=== PATIENT | male | born 1990 | race Caucasian/White ===

== ENCOUNTER 2025-05-24 12:21 | Emergency (ER) | payer OTHER, SELFPAY ==
[2025-05-24] VITALS (11 sets, daily range): BP systolic 114–138; BP diastolic 71–83; PULSE 66–73
[2025-05-24 12:59] LABS: Hematocrit 44.9 % (39.0-52.0); Hemoglobin 15.1 g/dL (13.0-18.0); Mean Corp Hgb Conc. 33.6 g/dL (33.0-37.0); Mean Corpuscular Volume 92.4 fL (80.0-94.0); Nucleated Red Blood Cells % 0 % (-); Platelet Count 311 10^3/uL (130-400); Red Cell Dist. Width 11.8 % (11.5-14.5)
[2025-05-24 13:18] LABS: ALT (SGPT) 32 U/L (0-50); AST (SGOT) 25 U/L (17-59); Albumin 5.2 g/dl (3.5-5.0); Alkaline Phosphatase 63 U/L (38-126); Blood Urea Nitrogen 13 mg/dl (9-20); Calcium 9.6 mg/dl (8.4-10.2); Carbon Dioxide 29 mmol/L (22-30); Chloride 100 mmol/L (98-107); Glucose 83 mg/dl (70-99); Potassium 4.3 mmol/L (3.5-5.1); Sodium 138 mmol/L (135-145); Total Protein 7.9 g/dl (6.3-8.2); eGFR > 60.00
[2025-05-24 13:29] LABS: Troponin I < 0.012 ng/ml
--- NOTE | 2025-05-24 16:22 | ED.GENMED ---
History of Present Illness
General
Chief Complaint: Dizziness
Source: patient
Exam Limitations: none
Time Seen by Provider: 05/24/25 15:59
History of Present Illness
History of Present Illness:
34-year-old male otherwise healthy presents with intermittent neck discomfort and headache with blurry vision and lightheadedness with dizziness. This has been going on for the past several weeks. he had a ulnar nerve transposition to the left
elbow about 3 weeks ago but some of the symptoms were going on before the surgery. She denies any new unilateral numbness or weakness no double vision. No fevers or rash. He is not outside and feels as though tick bite risk is very low. No chest
pain or shortness of breath. No other complaints at this time
Phy Exam
Physical Exam
Physical Exam:
General: Well-appearing nontoxic male no acute respiratory distress
HEENT: Normal cephalic atraumatic
Heart: Regular rate and rhythm
Lungs: Clear no wheeze
Neurologic exam: Alert and oriented no facial asymmetry no nystagmus no drift on exam finger-nose [id number] intact. No dysarthria or aphasia. Marcelo-Hallpike negative.
Skin is warm no rash
Musculoskeletal exam: Spine is nontender with full range of motion of the cervical spine
Course
Orders/Labs/Results
Orders:
Orders
05/24/25 12:32
Electrocardiogram (*1) Urgent
Reason for Study: Vertigo / Dizzy
EKG- Treatment ONCE
05/24/25 12:50
CBC/With Diff [Complete Blood Count/With Diff] Urgent
Comprehensive Metabolic Panel Urgent
Troponin I Urgent
05/24/25 16:14
CT Head W/o Iv Contrast Urgent
Comment:
Reason For Exam: dizzy, headache
Orthostatic VS- Treatment ONCE
Abnormal Lab Results
05/24/25
12:50
MCH 31.1 H pg
(27.0-31.0)
Albumin 5.2 H g/dl
(3.5-5.0)
05/24/25 12:50
05/24/25 12:50
Vital Signs
Initial and Last Documented VS:
Initial Vital Signs
Temp Pulse Resp BP Pulse Ox
97.7 F 70 20 124/75 100
05/24/25 12:24 05/24/25 12:24 05/24/25 12:24 05/24/25 12:24 05/24/25 12:24
Last Documented Vital Signs
Temp Pulse Resp BP Pulse Ox
97.6 F 61 11 114/76 100
05/24/25 15:00 05/24/25 19:00 05/24/25 19:00 05/24/25 19:00 05/24/25 19:00
MDM/Problems Addressed
Differential Diagnosis Includes:
Patient sent in by [facility] for symptoms of intermittent headache neck pain dizziness lightheadedness. No objective neurologic deficit on exam. Dizziness not reproducible. Consider vertigo however exam not consistent versus orthostasis. Do not
suspect dissection as he has no discomfort or symptoms at the time that I saw him.
Labs ordered EKG shows sinus rhythm. Will check CT of head
*Pulse Oximetry
SaO2: 100
Oxygen Mode of Delivery: Room air
Patient hypoxic: no
*Critical Care Note
Total Time (30-74mins, 75-104mins- exclusive of procedures): Not Applicable
Update Note
Update Note:
CT of the head negative for acute findings. No concern for stroke here given lack of neurologic deficit. No evidence of vertigo. Orthostatic vital signs are reviewed and are stable. No indication for admission but will advise he follow-up with
his family doctor
ED Attending Note
-
Portions of this chart may have been created with voice recognition software.� Occasional wrong word or��sound alike� substitutions may have occurred due to the inherent limitations of voice recognition software.
Discharge Plan
Departure
Patient Disposition: Home (Routine Discharge)
Date of Disposition: 05/24/25
Time of Disposition: 19:20
Patient with high blood pressure during this ER visit?: No
Discharge Problem:
Dizziness
Instructions: Dizziness
Referrals:
Bronwyn Caballero MD [Family Provider, Internal Medicine]
Activity Restrictions/Additional Instructions:
Please return here for worsening symptoms otherwise follow-up with your doctor
Interventions
Interventions:
*Risk Screen - Suicide Last Done: 05/24/25 16:00
*General Assessment Last Done: 05/24/25 16:00
*Neglect/Abuse Screening Last Done: 05/24/25 16:00
*ED- Fall Risk Assessment Last Done: 05/24/25 16:00
*ED COVID-19 Vaccine History Last Done: 05/24/25 16:00
*ED Influenza Vaccine History Last Done: 05/24/25 16:00
ED- Neurological Assessment Last Done: 05/24/25 16:00
ED- Cardiac Assessment Last Done: 05/24/25 16:00
Discharge Date and Time
Print Language: MALAYSIAN
== END 2025-05-24 19:54 | disposition home or self-care (01) ==
LOC: EMR 12:21
PROVIDERS: Emergency Medicine; EMERGENCY PHYSICIAN Student in an Organized Health Care Education/Training Program; FAMILY PHYSICIAN Internal Medicine
DX: R42 Dizziness and giddiness (principal); R51.9 Headache, unspecified
CPT/HCPCS: 99284; 70450; 80053; 84484; 85025; 93005